=== PATIENT | female | born 1990 | race Caucasian/White ===

== ENCOUNTER 2020-10-01 22:43 | Emergency (ER) | payer OTHER ==
[~2020-10-01 22:43] MED LIST: KEPPRA500 MG PO
[2020-10-01 23:44] LABS: BASOPHIL 0.5 % (0-2); EOSINOPHIL 1.1 % (0-5); HCT 36.6 % (37.0-47.0); HGB 12.5 g/dl (12.5-16.0); LYMPHOCYTE 6.9 % (15-48); MCH 31.7 pg (25.0-31.0); MCHC 34.2 g/dL (32.0-36.0); MCV 92.9 fL (78.0-100.0); MPV 9.1 fL (6.0-9.5); NRBC 0; PLT 211 K/uL (150-400); RBC 3.94 M/uL (4.20-5.40); RDW 12.9 % (11.5-14.0); WBC 8.7 K/uL (4.0-10.5)
[2020-10-01 23:56] LABS: BILIRUBIN NEGATIVE (NEGATIVE); BLOOD NEGATIVE Ery/uL (NEGATIVE); CLARITY CLEAR (CLEAR); COLOR YELLOW (YELLOW); GLUCOSE (U) NORMAL (NORMAL); LEUKOCYTES NEGATIVE Leu/uL (NEGATIVE); NITRITE NEGATIVE (NEGATIVE); PROTEIN NEGATIVE (NEGATIVE); SPECIFIC GRAVITY 1.025 (1.001-1.030); UROBILINOGEN 0.2 mg/dL (0.2-1.0)
[2020-10-02 00:04] LABS: ALBUMIN 3.7 g/dL (3.4-5.0); ALKALINE PHOSHATASE 53 U/L (46-116); ALT 19 U/L (14-59); AST 16 U/L (15-37); BILIRUBIN - TOTAL 0.2 mg/dL (0.2-1.0); BUN 9 mg/dL (7-18); BUN/CREAT RATIO (CALC) 11.1 RATIO; CHLORIDE 103 mmol/L (98-107); CO2 (BICARBONATE) 23 mmol/L (21-32); CREATININE 0.81 mg/dL (0.51-0.95); GLOBULIN (CALCULATION) 3.5 g/dL; GLUCOSE 92 mg/dL (74-106); LIPASE 121 U/L (73-393); POTASSIUM 3.6 mmol/L (3.5-5.1); TOTAL PROTEIN 7.2 g/dL (6.4-8.2)
[2020-10-02 00:05] LABS: C-REACTIVE PROTEIN < 0.20 mg/dL (<=0.90)
[2020-10-02 00:18] LABS: INFLUENZA A NAA NEGATIVE (NEGATIVE)
[2020-10-02 00:25] LABS: CORONAVIRUS 2019 SARS-COV-2 POSITIVE (NEGATIVE)
[2020-10-02] MEDS ORDERED: ONDANSETRON ODT4 MG SL (01:55)
[2020-10-02] MEDS ORDERED: NORCO 5-325 TA1 EACH PO (01:55)
[2020-10-02] MEDS ORDERED: IBUPROFEN800 MG PO (01:55)
== END 2020-10-02 02:15 | disposition home or self-care (01) ==
LOC: FER 22:43
PROVIDERS: Emergency Medicine Emergency Medical Services
DX: U07.1 COVID-19 (principal); F17.210 Nicotine dependence, cigarettes, uncomplicated
CPT/HCPCS: 36415; 80053; 81003; 83690; 85025; 86140; 87880; J1100; J1885; J2405; J7030; U0002

== ENCOUNTER 2021-04-12 17:20 | Emergency (ER) | payer OTHER ==
[~2021-04-12 17:20] MED LIST changes: +IBUPROFEN800 MG PO; +NORCO 5-325 TA1 EACH PO; +ONDANSETRON ODT4 MG SL
[2021-04-12 18:23] LABS: BILIRUBIN NEGATIVE (NEGATIVE); BLOOD 2+ Ery/uL (NEGATIVE); COLOR YELLOW (YELLOW); GLUCOSE (U) NORMAL (NORMAL); LEUKOCYTES NEGATIVE Leu/uL (NEGATIVE); NITRITE POSITIVE (NEGATIVE); PROTEIN NEGATIVE (NEGATIVE); SPECIFIC GRAVITY 1.025 (1.001-1.030); UROBILINOGEN 0.2 mg/dL (0.2-1.0)
[2021-04-12 18:28] LABS: CLARITY SLIGHTLY HAZY (CLEAR)
[2021-04-12 18:29] LABS: AMPHETAMINES POSITIVE (NEGATIVE); BARBITURATES NEGATIVE (NEGATIVE); ECSTASY (MDMA) NEGATIVE (NEGATIVE); MARIJUANA (THC) POSITIVE (NEGATIVE); METHADONE NEGATIVE (NEGATIVE); OPIATES NEGATIVE (NEGATIVE); OXYCODONE NEGATIVE (NEGATIVE)
[2021-04-12 18:31] LABS: BACTERIA 3+; URINARY WBC RARE
[2021-04-12 19:00] LABS: INFLUENZA A NAA NEGATIVE (NEGATIVE)
[2021-04-12 19:12] LABS: CORONAVIRUS 2019 SARS-COV-2 POSITIVE (NEGATIVE)
[2021-04-12] MEDS ORDERED: BACTRIM DS TAB1 EACH PO (19:38)
== END 2021-04-12 19:50 | disposition home or self-care (01) ==
LOC: FER 17:20
PROVIDERS: Nurse Practitioner Family
DX: U07.1 COVID-19 (principal); N39.0 Urinary tract infection, site not specified; F17.210 Nicotine dependence, cigarettes, uncomplicated; F19.90 Other psychoactive substance use, unspecified, uncomplicated
CPT/HCPCS: 80305; 81001; 87076; 87088; 87186; 99283; U0002